=== PATIENT | male | born 1985 | race Caucasian/White ===

== ENCOUNTER 2021-12-24 12:29 | Emergency (ER) | payer OTHER ==
[2021-12-24] MEDS ORDERED: Ketorolac Tromethamine 30 MG/ML VIAL ONE (13:38)
== END 2021-12-24 13:45 | disposition home or self-care (01) ==
LOC: MADERS 12:29
DX: S97.82XA Crushing injury of left foot, initial encounter (principal); F17.210 Nicotine dependence, cigarettes, uncomplicated; W20.8XXA Other cause of strike by thrown, projected or falling object, initial encounter
CPT/HCPCS: J1885